=== PATIENT | female | born 1990 | race Caucasian/White ===

== ENCOUNTER 2020-05-20 06:08 | Emergency (ER) | payer OTHER ==
[2020-05-20 06:24] VITALS: BMI 33.3
[2020-05-20 08:11] LABS: BASO % 0.5 % (0-2.0); EOS % 0.4 % (0-4.5); HEMATOCRIT 40.1 % (32.4-45.2); HEMOGLOBIN 13.5 GM/dL (10.7-15.3); MCH 30.6 pg (25.7-33.7); MCHC 33.6 g/dl (32.0-36.0); MEAN PLT VOLUME 8.1 fl (7.5-11.1); MONO % 5.9 % (3.8-10.2); NEUT % 74.2 % (42.8-82.8); PLATELET COUNT 280 K/MM3 (134-434); RBC 4.41 M/mm3 (3.60-5.2); RDW 12.7 % (11.6-15.6); WHITE BLOOD COUNT 12.4 K/mm3 (4.0-10.0)
[2020-05-20 08:20] LABS: PH,URINE 5.5 (5.0-8.0); URINE APPEARANCE Clear; URINE BILIRUBIN Negative (NEGATIVE); URINE COLOR Yellow; URINE GLUCOSE (UA) Negative (NEGATIVE); URINE KETONE Negative (NEGATIVE); URINE LEUK ESTERASE Trace (NEGATIVE); URINE NITRITE Negative (NEGATIVE); URINE PROTEIN Negative (NEGATIVE); URINE UROBILINOGEN 0.2 mg/dL (0.2-1.0)
[2020-05-20 08:34] LABS: INR 1.14 (0.83-1.09); PROTHROMBIN TIME (PATIENT) 13.5 SEC (9.7-13.0)
[2020-05-20 08:36] LABS: ACTIVATED PTT 30.6 SECONDS (25.2-36.5)
[2020-05-20 08:50] LABS: ALBUMIN 3.8 g/dl (3.4-5.0); CALCIUM 8.8 mg/dL (8.5-10.1); CREATININE 0.8 mg/dL (0.55-1.3); POTASSIUM 4.1 mmol/L (3.5-5.1); TOT PROT 7.2 g/dl (6.4-8.2)
--- NOTE | 2020-05-20 08:59 | PDOC ---
History of Present Illness - General Chief Complaint: Vaginal Bleeding Stated Complaint: VAGINAL BLEED/11 WEEKS Time Seen by Provider: 05/20/20 07:15 - History of Present Illness Initial Comments: 05/20/20 07:15 Patient is a 29-year-old female who presents to the ED with complaint of vaginal bleeding since she woke up this morning. She also states that she is having lower abdominal cramping which started this morning. She denies any fevers or chills. Patient states her LMP was 02/02/2020 and she is 15 weeks 3 days by dates but states that she is 11 weeks as told to her by her POWER PLANT MANAGER. She denies any dysuria or hematuria. She denies any heavy lifting or strenuous activity. She denies any past medical history or allergies to medications. Past History - Medical History Allergies/Adverse Reactions: Allergies Allergy/AdvReac Type Severity Reaction Status Date / Time amoxicillin Allergy Verified 05/20/20 06:23 Home Medications: Ambulatory Orders Colace 100 mg PO DAILY 05/20/20 Vitamin B-6 05/20/20 COPD: No - Reproductive History Is Patient Now?: Yes - Psycho-Social/Smoking History Smoking History: Never smoked - Substance Abuse Hx (Audit-C & DAST Scrn) How often the patient has a drink containing alcohol: Never Score: In Men: 4 or > Positive; In Women: 3 or > Positive: 0 Screen Result (Pos requires Nsg. Audit-10AR): Negative In the last yr the pt used illegal drug/Rx for NonMed reason: No Score: Yes response is considered Positive: 0 Screen Result (Positive result requires Nsg. DAST-10): Negative Review of Systems - Review of Systems Comments:: 05/20/20 08:59 - Review of Systems Able to Perform ROS?: Yes Constitutional: No: Fever, Chills, Loss of Appetite, Night Sweats, Weakness HEENTM: No: Eye Pain, Vision changes, Ear Pain, Throat Pain, Throat Swelling, Mouth Pain, Difficulty Swallowing Respiratory: No: Cough, Shortness of Breath, Wheezing, Sputum Production Cardiac (ROS): No: Chest Pain, Chest Tightness, Palpitations, Irregular Heart Beat, Edema ABD/GI: No: Nausea, Vomiting, Abdominal Pain, Diarrhea : No Dysuria, No Hematuria, No Frequency, No Urgency; positive: Vaginal bleeding in Musculoskeletal: No: Muscle Pain, Back Pain, Joint Pain, Muscle Weakness, Neck Pain Integumentary: No: Lesions, Rash Neurological: No: Headache, Numbness, Tingling, Weakness, Speech Difficulties *Physical Exam - Vital Signs Last Vital Signs Temp Pulse Resp BP Pulse Ox 98.4 F 86 18 139/67 100 05/20/20 06:16 05/20/20 06:16 05/20/20 06:16 05/20/20 06:16 05/20/20 06:16 - Physical Exam 05/20/20 09:00 - Physical Exam General Appearance: Nourished, Appropriately Dressed, No Distress HEENT: EOMI, Normal Voice, Hearing Grossly Normal Neck: Supple, No Lymphadenopathy (R), No Lymphadenopathy (L), No Rigidity, No Decreased range of motion Respiratory/Chest: Lungs Clear, Normal Breath Sounds. No Respiratory Distress, No Accessory Muscle Use Cardiovascular: Regular Rhythm, Regular Rate, S1, S2 Gastrointestinal/Abdominal: Normal Bowel Sounds, Soft. No Guarding, No Rebound, No Rigidity; mild lower abdominal tenderness to palpation. T[employer] MAN: Moderate beige/pink-tinged discharge in the vaginal vault. Cervix nonfriable appearing. Office closed. No foul odor. No CMT. Uterus mild tenderness to palpation. Adnexa nontender nonpalpable. Musculoskeletal: Normal Inspection. No Decreased Range of Motion Extremity: Normal Capillary Refill, Normal Inspection Integumentary: Normal Color, Dry. No Rash Neurologic: nurse's aides teacher II-XII NML intact, Fully Oriented, Alert, Normal Mood/Affect, Normal Response ED Treatment Course - LABORATORY CBC & Chemistry Diagram: 05/20/20 07:55 05/20/20 07:55 - ADDITIONAL ORDERS Additional order review: Laboratory Results 05/20/20 05/20/20 05/20/20 07:55 07:55 07:34 PT with INR 13.50 H INR 1.14 H PTT (Actin FS) 30.6 Sodium 138 Potassium 4.1 Chloride 108 H Carbon Dioxide 21 Anion Gap 9 BUN 14.0 Creatinine 0.8 Est GFR (CKD-EPI)AfAm 116.28 Est GFR (CKD-EPI)NonAf 100.33 Random Glucose 99 Calcium 8.8 Total Bilirubin 1.0 AST 22 ALT 33 Alkaline Phosphatase 60 Total Protein 7.2 Albumin 3.8 Urine Color Yellow Urine Appearance Clear Urine pH 5.5 Ur Specific [place] >= 1.030 Urine Protein Negative Urine Glucose (UA) Negative Urine Ketones Negative Urine Blood 2+ H Urine Nitrite Negative Urine Bilirubin Negative Urine Urobilinogen 0.2 Ur Leukocyte Esterase Trace 05/20/20 07:55 RBC 4.41 MCV 91.0 MCHC 33.6 RDW 12.7 MPV 8.1 Neutrophils % 74.2 Lymphocytes % 19.0 Monocytes % 5.9 Eosinophils % 0.4 Basophils % 0.5 05/20/20 10:13 Laboratory Tests 05/20/20 05/20/20 07:34 07:55 Beta HCG, Quant 91740.9 Urine Color Yellow Urine Appearance Clear Urine pH 5.5 Ur Specific [place] >= 1.030 Urine Protein Negative Urine Glucose (UA) Negative Urine Ketones Negative Urine Blood 2+ H Urine Nitrite Negative Urine Bilirubin Negative Urine Urobilinogen 0.2 Ur Leukocyte Esterase Trace - RADIOLOGY Radiology Studies Ordered: Category Date Time Status TRANSVAGINAL US PREG [US] Stat Ultrasound 05/20/20 07:27 Ordered Medical Decision Making - Medical Decision Making 05/20/20 09:01 Assessment: Patient is a 29-year-old female with vaginal bleeding and roughly 11 weeks gestation as per patient, 15 weeks as per dates. Plan: -Labs ordered and sent -Transvaginal ultrasound ordered -We will reassess 05/20/20 10:14 Patient is resting comfortably at this time. She is awaiting her ultrasound read by radiology. 05/20/20 11:16 The patient has been made aware that her ultrasound shows a 12-week 3-day g estation with heart rate of 163 bpm. There is no evidence of subchorionic hemorrhage appreciated on ultrasound read. She does have a hemorrhagic cyst which could be causing her pain. She should follow-up with her POWER PLANT MANAGER as already scheduled for 05/24/2020. She has been advised to maintain pelvic rest until she is cleared by her POWER PLANT MANAGER. Discharge - Discharge Information Problems reviewed: Yes Clinical Impression/Diagnosis: Vaginal bleeding during Condition: Stable Disposition: HOME - Follow up/Referral Referrals: Jeff Silverman MD [Primary Care Provider] - - Patient Discharge Instructions Patient Printed Discharge Instructions: DI for Vaginal Bleeding During Additional Instructions: Avoid any strenuous activity or heavy lifting. Avoid anything in the vagina including tampons, sexual intercourse, douches until you are cleared by your POWER PLANT MANAGER. Get plenty of rest and drink plenty of fluids. Follow-up with your POWER PLANT MANAGER as scheduled on 05/24/2020. Return for worsening abdominal pain, heavy vaginal bleeding, passing of tissue or clots, or any other worsening symptoms. - Post Discharge Activity Work/Back to School Note: Back to Work
[2020-05-20 10:55] LABS: EPI CELLS 171.6 /uL (0-25.1); HYALINE CASTS 25.17 /uL (0-3.1); URINE RBC 3.9 /uL (0-23.9); URINE WBC 33 /uL (0-25.8)
[2020-05-20 10:56] LABS: URINE BACTERIA 725.5 /uL (0-1359)
[2020-05-20 11:28] VITALS: BP 127/69; PULSE 71; TEMP 98.2
== END 2020-05-20 11:29 | disposition home or self-care (01) ==
LOC: JER 06:08
DX: O26.851 Spotting complicating pregnancy, first trimester (principal); Z3A.11 11 weeks gestation of pregnancy
CPT/HCPCS: 36415; 76817-TC; 80053; 81003; 84702; 85025; 85610; 85730; 86850; 86900; 86901; 87070; 87077; 87086; 87205; 99284-25